=== PATIENT | female | born 1970 | race Hispanic/Latino ===

== ENCOUNTER 2020-05-19 17:30 | Emergency (ER) | payer SELFPAY ==
[2020-05-19] MEDS ORDERED: ONDANSETRON ODT 4 MG TAB ONE (18:01)
[2020-05-19] MEDS ORDERED: HYDROMORPHONE 1 MG/1 ML AMP ONE (18:02)
[2020-05-19] MEDS ORDERED: FAMOTIDINE 20MG TAB 20 MG TAB ONE (19:30)
[2020-05-19] MEDS ORDERED: DIPHENHYDRAMINE HCL 25 MG CAPSULE ONE (19:30)
== END 2020-05-19 20:11 | disposition home or self-care (01) ==
LOC: EDH 17:30
DX: M54.81 Occipital neuralgia (principal)
CPT/HCPCS: 70450; 96372; 99284; J1170; Q0163